=== PATIENT | male | born 2000 | race African-American/Black ===

== ENCOUNTER 2022-05-03 14:48 | Emergency (ER) | payer MEDICARE, MEDICAID, OTHER ==
[~2022-05-03] VITALS: Ht 182.9 cm; Wt 80.0 kg
[~2022-05-03 14:48] MED LIST: BO1 TP
[2022-05-03 14:56] VITALS: BP 148/72
== END 2022-05-03 15:20 | disposition home or self-care (01) ==
LOC: ER 14:48
DX: Z02.89 Encounter for other administrative examinations (principal); F14.10 Cocaine abuse, uncomplicated; F32.A Depression, unspecified; F20.9 Schizophrenia, unspecified; F17.210 Nicotine dependence, cigarettes, uncomplicated; F12.10 Cannabis abuse, uncomplicated; Z91.14 Patient's other noncompliance with medication regimen
CPT/HCPCS: 99283